=== PATIENT | male | born 1940 | race Caucasian/White ===

== ENCOUNTER 2021-05-15 23:10 | Inpatient (IN) | payer OTHER ==
[~2021-05-15] VITALS: Ht 177.8 cm; Wt 80.3 kg
--- NOTE | ~2021-05-15 | OP ---
[facility] [address] [place] [address] OPERATIVE REPORT Name: KHURRAM DICKEY Room: [address]R.#: [id number] Admission: 05/16/21 Attend Phys: Carroll Cheung Discharge: 05/20/21 Date of : 44 Report #: [id number] THIS REPORT FOR: cc: Ming Erickson Gregory DO Kesl,Umberto Rizo DO ~ DATE OF SURGERY: 05/17/2021 PREOPERATIVE DIAGNOSIS: Left displaced femoral neck fracture. POSTOPERATIVE DIAGNOSIS: Left displaced femoral neck fracture. PROCEDURE: Left sebas-hip arthroplasty. SURGEON: Umberto Bailey DO ANESTHESIA: General. ANTIBIOTICS: Ancef. IV FLUIDS: Please see anesthesia notes for details. ESTIMATED BLOOD LOSS: 150 mL. COMPLICATIONS: None. SPECIMENS: None. DRAINS: None. CONDITION OF THE PATIENT: Stable to PACU. IMPLANTS: Biomet Taperloc size 16 stem, standard offset standard length, +3 neck adapter with a 53 mm bipolar head. INDICATIONS FOR PROCEDURE: Displaced femoral neck fracture. I spoke with the patient and his , went over the plan of surgery with risks and complications. Consent given. DESCRIPTION OF PROCEDURE: I marked the left lower extremity in the presence of operative team members, everyone agreed to be correct. He was taken back to the operative suite, general anesthetic administered. He was transferred to the operative table, well-padded and secured including the Garcia. He was placed in the right lateral decubitus position, well padded and secured including the Garcia. Left lower extremity was sterilely prepped and draped in standard fashion. Timeout performed, indicating correct patient, procedure, site, [address] [address] OPERATIVE REPORT Name: KHURRAM DICKEY Room: [address] IN [facility].#: [id number] Admission: 05/16/21 Attend Phys: Carroll Cheung Discharge: 05/20/21 Date of : 44 Report #: [id number] antibiotics and the implants were present and sterile. All team members agreed. Anterolateral approach utilized, scalpeled through skin, full thickness flaps down to the IT band and fascia incised. Charnley retractor placed deep, anterior one-third of the gluteus medius and minimus were reflected off with a cuff of tissue for repair, leaving the attached at the tip of the trochanter. Capsule was another layer, T capsulotomy, labrum undisturbed. Reciprocating saw was used to clean up the femoral neck, one fingerbreadth above the lesser, femoral head removed. Size 53 trial placed, appropriate. Removed any debris remaining from within the acetabulum. We began prepping the femur. Box osteotome, canal finder, lateralizing, broaching. Size 16 good fit. Trialed the standard offset, neck, standard neck adapter with 53 shell. Leg lengths appeared slightly short. We dislocated, placed a , reduced the hip. Tension was created in regards to offset. Leg lengths were appropriate. Excellent stability in all planes. Dislocated the hip, removed trial components, irrigated thoroughly with normal saline. Final 16 Taperloc stem, standard offset, standard length on the back table. This was implanted, sat at the same location as the trial. Good fit, fill and rotational stability. No obvious evidence of any fracture, sitting at the same location, we therefore through the final 53 with +3 neck adapter engaged the Gabriel taper with mallet confirmed by no longer being able to remove, checked the acetabulum one last time. No debris. Reduced hip with all final components in place. Leg lengths were felt great, tension appropriate, stability in all planes. Thoroughly irrigated with normal saline. Vancomycin powder placed deep, closed the capsule with #1 Vicryl. Gluteus repaired with ____ sutures, #5 Ti-Cron and oversewn with #1 Vicryl. IT band and fascia were closed with #1 Vicryl and oversewn with #1 Stratafix. Subcutaneous with 2-0 Monocryl, skin with running 3-0 Stratafix. Debriefing performed confirming procedure, blood loss and all counts were correct and the final team members agreed. A sterile silver dressing applied. He was transferred off the operating table back to his bed supine. Leg lengths were appropriate. Abductor pillow placed. He was extubated and taken to PACU stable. POSTOPERATIVE COURSE AND EVALUATION. I spoke with his . Addressed questions to her satisfaction. She was recording our conversation on her phone. She was thankful for time and efforts. He was resting in PACU, stable vital signs. Pain control. Neurovascularly intact. PACU films showed stable prosthesis in good position and alignment. No obvious fracture or dislocation. Weightbear as tolerated. Anterolateral hip precautions, PT, OT. COVID protocol followed at all times. By: [id number] Bailey, /nt
[2021-05-15 23:15] VITALS: BP 174/75
[2021-05-15] MEDS ORDERED: ARICEPT23 MG PO (23:18)
[2021-05-15] MEDS ORDERED: LISINOPRIL20 MG PO (23:18)
[2021-05-15] MEDS ORDERED: MELATONIN3 M1 PO (23:19)
[2021-05-15] MEDS ORDERED: METFORMIN HCL500 M3 PO (23:19)
[2021-05-15] MEDS ORDERED: TOPROL XL25 MG PO (23:19)
[2021-05-15] MEDS ORDERED: NAMENDA 10 MG T10 MG PO (23:19)
[2021-05-15] MEDS ORDERED: PROPAFENONE 15150 MG PO (23:20)
[2021-05-15] MEDS ORDERED: OMEPRAZOLE40 MG PO (23:20)
[2021-05-15] MEDS ORDERED: ZOCOR 20 MG TAB20 M1 PO (23:21)
[2021-05-16 00:21] LABS: ABSOLUTE LYMPHOCYTES 0.9 thou/uL (0.8-5.3); ABSOLUTE NEUTROPHILS 8.2 thou/uL (1.6-8.1); BASOPHILS 0.3 %; EOSINOPHILS 0.2 %; HEMATOCRIT 37.1 % (42.0-52.0); HEMOGLOBIN 12.8 gm/dL (14.0-18.0); LYMPHOCYTES 8.9 %; MCH 33.3 pg (26.0-34.0); MCHC 34.4 g/dL (28.0-37.0); MCV 96.7 fL (80.0-100.0); MONOCYTES 9.5 %; MPV 7.5 fl. (7.2-11.1); NUCLEATED RBCS 0 /100WBC; PLATELET COUNT* 76 thou/uL (150-400); POLYS 81.1 %; RBC 3.83 mil/uL (4.50-6.00); RDW-CV 16.6 % (10.5-14.5); WBC 10.1 thou/uL (4.0-11.0)
[2021-05-16 00:24] LABS: CREATININE 1.7 mg/dL (0.6-1.3); POTASSIUM 4.2 mmol/L (3.5-5.1)
[2021-05-16 05:36] VITALS: BP 163/76
[2021-05-16 09:41] VITALS: BP 165/74
[2021-05-16 11:05] VITALS: BP 165/65
[2021-05-16] MEDS ORDERED: VITAMIN B-121000 MC2 PO (11:36)
[2021-05-16] MEDS ORDERED: OXYBUTYNIN 5 MG5 M2 PO (11:38)
--- NOTE | 2021-05-16 11:54 | NUR ---
PT TAKEN TO FLOOR ROOM 230 AT THIS TIME BY PAT NELSON.
--- NOTE | 2021-05-16 13:25 | EKG ---
[place] [address] ELECTROCARDIOGRAM REPORT Name: KHURRAM DICKEY Room: [address] ADM IN ..#: [id number] Admission: 05/16/21 Attend Phys: Magdy iMstry Discharge: Date of : 44 Date of Service: 05/16/21 0024 Report #: [id number] THIS REPORT FOR: //name// [facility] ED Test Date: 2021-05-16 Test Time: 00:24:45 Pat Name: KHURRAM DICKEY Department: Room: [facility] Gender: M [employer] Ware[employer] Worker: : 1940 Requested By: Arabella Tsang Order Number: [id number] MD: Shree Odonnell Measurements Intervals [place] Rate: 71 P: 43 NM: 177 QRS: 13 QRSD: 161 T: -8 QT: 422 QTc: 459 Interpretive Statements Sinus rhythm low voltage Right bundle branch block Baseline wander in lead(s) II,III,aVR,aVF No previous ECG available for comparison Electronically Signed On 05-16-2021 13:24:52 CDT by Shree Odonnell [email or web address] <ELECTRONICALLY SIGNED> By: Shree Odonnell MD, [facility] 05/16/21 1324 0024 0024 Shree Odonnell MD, [facility] /EPI
[2021-05-16 15:32] VITALS: BP 192/81
[2021-05-16 20:10] VITALS: BP 187/89
[2021-05-17] VITALS: BP 168/83
[2021-05-17 01:21] VITALS: BP 159/83; BP 168/83
[2021-05-17 04:52] VITALS: BP 159/83
[2021-05-17 05:07] LABS: PROTIME 10.8 Seconds (9.20-11.50)
--- NOTE | 2021-05-17 05:11 | NUR ---
PATIENT HAS REMAINED ALERT AND ORIENTED X 2-3, FORGETFUL. PLEASANT AND COOPERATIVE WITH CARES. REPOSITIONED MINAMALLY DUE TO PAIN LEFT HIP. MEDICATED X 2. O2 APPLIED AT 2L/MIN FOR SATS 86-91% ON ROOM AIR AFTER PAIN MEDICATION. MID TO UPPER 90'S ON RECHECKS. UPPER AND LOWER PARTIAL PLATES REMOVED THIS AM FOR SURGERY. THESE ARE IN DENTURE CUP LEFT AT BEDSIDE. SANTIAGO CATHETER IN PLACE WITH ADEQUATE URINE OUTPUT. VITAL SIGNS STABLE WITH HYPERTENSION. HYPERTENSION WAS REPORTED TO PHYSICIAN THIS PAST EVENING WITH NEW ORDERS. IMPROVEMENT OVERNIGHT. NPO FROM MIDNIGHT. PRE-OP ROUTINES IN PROGRESS. FALL PRECAUTIONS IN PLACE. CONTINUE TO MONITOR.
--- NOTE | 2021-05-17 06:14 | NUR ---
PATIENT TO PACU AT 0610 BY BED WITH ALL RAILS UP IN STABLE CONDITION.
[2021-05-17 08:00] VITALS: BP 157/94
[2021-05-17 12:36] LABS: ABSOLUTE LYMPHOCYTES 0.4 thou/uL (0.8-5.3); ABSOLUTE MONOCYTES 0.9 thou/uL (0.0-1.2); ABSOLUTE NEUTROPHILS 7.8 thou/uL (1.6-8.1); BASOPHILS 0.5 %; EOSINOPHILS 0.2 %; HEMOGLOBIN 10.6 gm/dL (14.0-18.0); LYMPHOCYTES 4.8 %; MCH 33.6 pg (26.0-34.0); MCHC 34.1 g/dL (28.0-37.0); MCV 98.6 fL (80.0-100.0); MONOCYTES 10.1 %; MPV 7.2 fl. (7.2-11.1); NUCLEATED RBCS 0 /100WBC; PLATELET COUNT* 59 thou/uL (150-400); POLYS 84.4 %; RBC 3.15 mil/uL (4.50-6.00); RDW-CV 15.9 % (10.5-14.5); WBC 9.2 thou/uL (4.0-11.0)
[2021-05-17 12:46] LABS: CALCIUM 7.9 mg/dL (8.5-10.1); CREATININE 1.4 mg/dL (0.6-1.3); POTASSIUM 4.2 mmol/L (3.5-5.1)
--- NOTE | 2021-05-17 15:12 | NUR ---
CM ASSESSMENT: CM SPOKE TO PT'S DTR TO COMPLETE CM ASSESSMENT. PT'S DTR INFORMS THAT THE PT JUST MOVED INTO [facility] A COUPLE OF DAYS AGO. PT USED A WHEELCHAIR FOR MOBILITY, AND DID NOT HAVE HOME OXYGEN PRIOR TO ADMIT. PT'S DTR INFORMS THAT THE [place] IF FOR THE PT TO RETURN TO [facility] AT D/C. [facility] I AGREEMENT WITH THIS PLAN, BUT WILL NEED TO OBTAIN INUSRANCE AUTH. PT/OT ORDERS WILL NEEDED TO OBTAIN INSURANCE AUTH. CM WILL REMAIN AVAILABLE TO ASSIST AND FOLLOW NEEDED.
[2021-05-17 16:00] VITALS: BP 120/69
--- NOTE | 2021-05-17 19:46 | NUR ---
PT BROUGHT BACK UP FROM SURGERY TODAY AT 1100PT HAS SANTIAGO CATH. AND WAS CALLING OUT FOR PAIN MEDICATIONS. PT RESTING ON HIS BED TURNED EVERY 2 HOURS OFF HIS BOTTOM. HIP DRESSING C/D/I. WEDGE IN BETWEEN HIS LEGS. WILL CONTINUE TO MONITOR PLAN OF CARE.
[2021-05-17 20:44] VITALS: BP 117/72
[2021-05-18 04:02] VITALS: BP 113/63
[2021-05-18 05:10] LABS: HEMATOCRIT 25.3 % (42.0-52.0); HEMOGLOBIN 8.7 gm/dL (14.0-18.0); MCH 34.1 pg (26.0-34.0); MCHC 34.5 g/dL (28.0-37.0); MCV 98.8 fL (80.0-100.0); MPV 7.1 fl. (7.2-11.1); RBC 2.56 mil/uL (4.50-6.00); RDW-CV 16.4 % (10.5-14.5); WBC 10.2 thou/uL (4.0-11.0)
[2021-05-18 05:24] LABS: CALCIUM 7.2 mg/dL (8.5-10.1); CREATININE 1.6 mg/dL (0.6-1.3); POTASSIUM 3.9 mmol/L (3.5-5.1)
--- NOTE | 2021-05-18 06:57 | NUR ---
PT IS ABLE TO COMMUNICATE HIS NEEDS TO STAFF WITH MINOR DIFFICULTY; HE IS CONFUSED AND FORGETFUL OFTEN. CURRENT PAIN MEDICATION REGIMEN HAS BEEN ADEQUATE FOR CONTROLLING HIS PAIN UP TO THIS TIME. SANTIAGO HAS BEEN PATENT UP TO THIS TIME. ABDUCTOR WEDGE KEPT IN PLACE THROUGHOUT THIS SHIFT. LT HIP DRESSING C/D/I UP TO THIS TIME; SURGERY TO EVAL AND CHANGE.
[2021-05-18 07:50] VITALS: BP 132/61
[2021-05-18 13:10] LABS: ABSOLUTE EOSINOPHILS 0.1 thou/uL (0.0-0.7); ABSOLUTE LYMPHOCYTES 0.8 thou/uL (0.8-5.3); ABSOLUTE MONOCYTES 2.4 thou/uL (0.0-1.2); ABSOLUTE NEUTROPHILS 8.8 thou/uL (1.6-8.1); BASOPHILS 0.3 %; EOSINOPHILS 0.5 %; HEMATOCRIT 24.1 % (42.0-52.0); HEMOGLOBIN 8.2 gm/dL (14.0-18.0); LYMPHOCYTES 6.8 %; MCH 33.3 pg (26.0-34.0); MCHC 34.1 g/dL (28.0-37.0); MCV 97.8 fL (80.0-100.0); NUCLEATED RBCS 0 /100WBC; PLATELET COUNT* 64 thou/uL (150-400); POLYS 72.4 %; RBC 2.47 mil/uL (4.50-6.00); RDW-CV 16.2 % (10.5-14.5); WBC 12.1 thou/uL (4.0-11.0)
[2021-05-18 16:00] VITALS: BP 139/64
--- NOTE | 2021-05-18 18:58 | NUR ---
PATIENT RESTING IN BED. PATIENT IS UP WITH MAX ASSIST OF 2 FOR TRANSFERS. PATIENT WORKED WITH THERAPIES THIS AM. PATIENT HAS COMPLAINTS OF PAIN, TREATED PARTIALLY WITH OXYCODONE. PATIENT HAS FAIR APPETITE. DRESSING TO LEFT HIP DRYA ND INTACT, BRUISING TO SITE. PATIENT DENIES ANY NEEDS AT THIS TIME. CALL LIGHT WITHIN REACH.
[2021-05-18 20:59] VITALS: BP 128/69
--- NOTE | 2021-05-19 06:02 | NUR ---
PT IS ABLE TO COMMUNICATE HIS NEEDS TO STAFF WITH MINOR DIFFICULTY; HE IS FORGETFUL AND CONFUSED. CURRENT PAIN MEDICATION REGIMEN HAS BEEN ADEQUATE FOR CONTROLLING HIS PAIN UP TO THIS TIME. PT REFUSED ABDUCTOR WEDGE, BUT, SCDs WERE ON ALL SHIFT. HIP SURGERY PRECAUTIONS MAINTAINED. PT EATING AND DRINKING. SANTIAGO PATENT UP TO THIS TIME.
[2021-05-19 08:30] VITALS: BP 98/60
[2021-05-19 12:00] VITALS: BP 108/53
[2021-05-19 16:00] VITALS: BP 136/66
--- NOTE | 2021-05-19 19:50 | NUR ---
I ASSUMED CARE OF THE PATIENT AT 0700. HE IS ALERT AND ORIENTED X1-2 AND IS UP WITH MAX ASSIST OF 2. BED IS IN THE LOW LOCKED POSITION AND CALL LIGHT IS IN REACH. HE IS REPOSITIONED EVERY 2 HOURS AND BLOOD GLUCOSE IS MONITORED. PAIN MEDS ARE USED TO PARTIALLY MANAGE PAIN. CALL LIGHT IS BROKEN AND BARRY IS BEING USED. FOOD TRAY NEEDS SETUP. WILL CONTINUE TO MONITOR. SANTIAGO IS A LITTLE LEAKY AROUND THE MEATUS. WILL VISIT TOMORROW.
[2021-05-19 20:00] VITALS: BP 110/71
[2021-05-20 05:09] VITALS: BP 122/63
[2021-05-20 08:01] VITALS: BP 132/66
[2021-05-20 09:06] VITALS: BP 132/66
[2021-05-20] MEDS ORDERED: PERCOCET PO (10:24)
[2021-05-20] MEDS ORDERED: SENNA8.6 MG PO (10:24)
--- NOTE | 2021-05-20 14:16 | NUR ---
PHYSICIAN INFORMS OF PLAN FOR THE PT TO D/C TODAY BACK TO [facility] TODAY. [facility] ARRANGED W/C [facility] FOR THE PT FOR [phone]. PT AND SPOUSE INFORMED AND IN AGREEMENT WITH THE PLAN. RN INFORMED OF WHERE TO CALL REPORT. CM WILL REMAIN AVAILABLE TO ASSIST AND FOLLOW NEEDED. [facility] PHONE: [phone] ([facility])
--- NOTE | 2021-05-20 15:32 | NUR ---
PT DC TO [facility] AT ABOUT 1525 WITH TRANSPORTERS. IVs OUT. SANTIAGO IN PLACE. REPORT GIVEN AT 1530 TO [facility]. PT STABLE UPON DISCHARGE.
== END 2021-05-20 15:36 | DRG 521 ==
LOC: M.ERS 23:10 → M.2W 05-16 01:41 → M.TBA-ER 05-16 01:41 → M.2W 05-16 12:01
PROVIDERS: Emergency Medicine; Internal Medicine; ADMIT Internal Medicine; ATTEND Internal Medicine
PROC: 0SRS01Z Replacement of Left Hip Joint, Femoral Surface with Metal Synthetic Substitute, Open Approach (ICD-10-PCS; principal; 2021-05-17)
DX: S72.142A Displaced intertrochanteric fracture of left femur, initial encounter for closed fracture (principal); N17.0 Acute kidney failure with tubular necrosis; R71.0 Precipitous drop in hematocrit; E11.9 Type 2 diabetes mellitus without complications; I10 Essential (primary) hypertension; E78.5 Hyperlipidemia, unspecified; K21.9 Gastro-esophageal reflux disease without esophagitis; F03.90 Unspecified dementia, unspecified severity, without behavioral disturbance, psychotic disturbance, mood disturbance, and anxiety; E78.00 Pure hypercholesterolemia, unspecified; W05.0XXA Fall from non-moving wheelchair, initial encounter; Z20.822 Contact with and (suspected) exposure to COVID-19; Y93.89 Activity, other specified; Y92.89 Other specified places as the place of occurrence of the external cause; Y99.8 Other external cause status; Z79.899 Other long term (current) drug therapy; Z87.891 Personal history of nicotine dependence

== ENCOUNTER 2021-05-28 14:05 | Inpatient (IN) | payer OTHER ==
[~2021-05-28] VITALS: Ht 172.7 cm; Wt 78.7 kg
[~2021-05-28 14:05] MED LIST: ARICEPT23 MG PO; LISINOPRIL20 MG PO; MELATONIN3 M1 PO; METFORMIN HCL500 M3 PO; NAMENDA 10 MG T10 MG PO; OMEPRAZOLE40 MG PO; OXYBUTYNIN 5 MG5 M2 PO; PERCOCET PO; PROPAFENONE 15150 MG PO; SENNA8.6 MG PO; TOPROL XL25 MG PO; VITAMIN B-121000 MC2 PO; ZOCOR 20 MG TAB20 M1 PO
[2021-05-28 14:14] VITALS: BP 124/44
[2021-05-28 14:21] LABS: URINE BILIRUBIN NEGATIVE (Negative); URINE BLOOD 3+ (Negative); URINE CLARITY CLOUDY; URINE COLOR YELLOW; URINE GLUCOSE-RANDOM NEGATIVE (Negative); URINE KETONES NEGATIVE (Negative); URINE PROTEIN 2+ (Negative)
[2021-05-28 14:22] LABS: URINE LEUKOCYTES-REFLEX 2+ (Negative); URINE NITRITE-REFLEX POSITIVE (Negative)
[2021-05-28 14:30] LABS: SQUAMOUS 4-10 Moderate /LPF (0-3); URINE WBC-REFLEX 6-15 Few /HPF (0-5)
[2021-05-28 14:31] LABS: CALCIUM OXALATE 4-10 Moderate /LPF (None Seen); CASTS None Seen /LPF (None Seen); TRIPLE PHOSPHATE CRYSTALS 4-10 Moderate /LPF (None Seen)
--- NOTE | 2021-05-28 14:37 | EKG ---
[place] [address] ELECTROCARDIOGRAM REPORT Name: KHURRAM DICKEY Room: [facility]#: [id number] Admission: Attend Phys: Discharge: Date of : 44 Date of Service: 05/28/21 1418 Report #: [id number] THIS REPORT FOR: //name// [facility] ED Test Date: 2021-05-28 Test Time: 14:18:48 Pat Name: KHURRAM DICKEY Department: Room: Gender: Corporate Security Officer: [facility] : 1940 Requested By: Lakhwinder Campos Order Number: [id number] MD: Shree Odonnell Measurements Intervals [place] Rate: 67 P: 15 MO: 166 QRS: -5 QRSD: 152 T: -3 QT: 471 QTc: 498 Interpretive Statements Sinus rhythm Right bundle branch block Compared to ECG 05/16/2021 00:24:45 No significant changes Electronically Signed On 05-28-2021 14:37:24 CDT by Shree Odonnell [email or web address] <ELECTRONICALLY SIGNED> By: Shree Odonnell MD, [facility] 05/28/21 1437 1418 1418 Shree Odonnell MD, [facility] /EPI
[2021-05-28 14:39] LABS: ABSOLUTE BASOPHILS 0.1 thou/uL (0.0-0.2); ABSOLUTE MONOCYTES 1.9 thou/uL (0.0-1.2); ABSOLUTE NEUTROPHILS 14.1 thou/uL (1.6-8.1); BASOPHILS 0.4 %; EOSINOPHILS 0.2 %; HEMATOCRIT 23.7 % (42.0-52.0); HEMOGLOBIN 7.8 gm/dL (14.0-18.0); LYMPHOCYTES 5.8 %; MCH 32.1 pg (26.0-34.0); MCHC 32.9 g/dL (28.0-37.0); MCV 97.7 fL (80.0-100.0); MONOCYTES 11.1 %; MPV 6.6 fl. (7.2-11.1); NUCLEATED RBCS 1 /100WBC; PLATELET COUNT* 212 thou/uL (150-400); POLYS 82.5 %; RBC 2.42 mil/uL (4.50-6.00); RDW-CV 17.1 % (10.5-14.5); WBC 17.1 thou/uL (4.0-11.0)
[2021-05-28 14:45] LABS: CALCIUM 8.6 mg/dL (8.5-10.1); CREATININE 1.6 mg/dL (0.6-1.3); POTASSIUM 3.9 mmol/L (3.5-5.1)
[2021-05-28 14:59] LABS: ALBUMIN 2.6 g/dL (3.4-5.0); TOTAL BILIRUBIN 0.6 mg/dL (<0.1-1.0); TOTAL PROTEIN 7.6 g/dL (6.4-8.2)
[2021-05-28 15:41] VITALS: BP 104/50
[2021-05-28 19:45] VITALS: BP 128/64
[2021-05-29] VITALS (8 sets, daily range): BP systolic 115–156; BP diastolic 56–91
[2021-05-29 04:34] LABS: MCH 32.4 pg (26.0-34.0); MCHC 33.5 g/dL (28.0-37.0); MPV 6.5 fl. (7.2-11.1); RBC 1.94 mil/uL (4.50-6.00); RDW-CV 16.9 % (10.5-14.5); WBC 7.3 thou/uL (4.0-11.0)
[2021-05-29 04:46] LABS: HEMATOCRIT 18.8 % (42.0-52.0); HEMOGLOBIN 6.3 gm/dL (14.0-18.0)
[2021-05-29 05:03] LABS: CALCIUM 7.7 mg/dL (8.5-10.1); CREATININE 1.3 mg/dL (0.6-1.3); MAGNESIUM 1.7 mg/dL (1.8-2.4); POTASSIUM 3.6 mmol/L (3.5-5.1); TOTAL BILIRUBIN 0.5 mg/dL (<0.1-1.0); TOTAL PROTEIN 5.9 g/dL (6.4-8.2)
[2021-05-29 14:37] LABS: HEMATOCRIT 25.7 % (42.0-52.0)
[2021-05-29 14:38] LABS: HEMOGLOBIN 8.8 gm/dL (14.0-18.0)
[2021-05-30 01:00] VITALS: BP 140/61
[2021-05-30 04:15] LABS: HEMATOCRIT 23.4 % (42.0-52.0); HEMOGLOBIN 7.9 gm/dL (14.0-18.0); MCH 31.5 pg (26.0-34.0); MCV 92.8 fL (80.0-100.0); MPV 6.4 fl. (7.2-11.1); RBC 2.52 mil/uL (4.50-6.00); RDW-CV 19.2 % (10.5-14.5); WBC 7.4 thou/uL (4.0-11.0)
[2021-05-30 04:28] LABS: ALBUMIN 2.3 g/dL (3.4-5.0); CALCIUM 8.1 mg/dL (8.5-10.1); CREATININE 1.3 mg/dL (0.6-1.3); MAGNESIUM 1.6 mg/dL (1.8-2.4); POTASSIUM 3.8 mmol/L (3.5-5.1); TOTAL BILIRUBIN 0.6 mg/dL (<0.1-1.0); TOTAL PROTEIN 6.4 g/dL (6.4-8.2)
[2021-05-30 05:27] VITALS: BP 151/74
[2021-05-30 08:00] VITALS: BP 156/70
[2021-05-30 11:43] VITALS: BP 137/66
[2021-05-30 17:34] VITALS: BP 141/75
[2021-05-30 20:15] VITALS: BP 132/58
[2021-05-31 01:12] VITALS: BP 145/72
[2021-05-31 04:24] LABS: HEMATOCRIT 23.5 % (42.0-52.0); MCH 31.7 pg (26.0-34.0); MCHC 34.1 g/dL (28.0-37.0); MCV 92.9 fL (80.0-100.0); MPV 6.5 fl. (7.2-11.1); RBC 2.53 mil/uL (4.50-6.00); RDW-CV 18.6 % (10.5-14.5); WBC 6.4 thou/uL (4.0-11.0)
[2021-05-31 04:43] LABS: ALBUMIN 2.2 g/dL (3.4-5.0); CALCIUM 8.4 mg/dL (8.5-10.1); CREATININE 1.4 mg/dL (0.6-1.3); MAGNESIUM 1.8 mg/dL (1.8-2.4); POTASSIUM 3.8 mmol/L (3.5-5.1); TOTAL BILIRUBIN 0.4 mg/dL (<0.1-1.0); TOTAL PROTEIN 6.2 g/dL (6.4-8.2)
[2021-05-31 05:24] VITALS: BP 152/62
[2021-05-31 12:00] VITALS: BP 124/62
[2021-05-31 16:00] VITALS: BP 129/65
[2021-05-31 18:29] LABS: URINE BILIRUBIN NEGATIVE (Negative); URINE BLOOD TRACE (Negative); URINE CLARITY CLEAR; URINE COLOR YELLOW; URINE GLUCOSE-RANDOM NEGATIVE (Negative); URINE KETONES NEGATIVE (Negative); URINE LEUKOCYTES 1+ (Negative); URINE NITRITE NEGATIVE (Negative); URINE PROTEIN NEGATIVE (Negative)
[2021-05-31 18:37] LABS: BACTERIA 1-9 Few /HPF (None Seen); SQUAMOUS 0-3 Few /LPF (0-3); URINE RBC 0-2 Rare /HPF (0-2); URINE WBC 6-15 Few /HPF (0-5)
[2021-05-31 18:38] LABS: CASTS None Seen /LPF (None Seen); CRYSTALS None Seen /LPF (None Seen)
[2021-05-31 20:00] VITALS: BP 132/63
[2021-06-01 00:50] VITALS: BP 141/61
[2021-06-01 06:21] VITALS: BP 142/72
[2021-06-01 07:47] VITALS: BP 117/54
[2021-06-01 07:57] VITALS: BP 163/83
[2021-06-01 12:00] VITALS: BP 145/77
[2021-06-01] MEDS ORDERED: BENAZEPRIL HCL20 MG PO (13:41)
[2021-06-01] MEDS ORDERED: METOPROLOL SUCC25 M1 PO (13:41)
[2021-06-01] MEDS ORDERED: FLOMAX0.4 MG PO (13:41)
[2021-06-01] MEDS ORDERED: CIPRO250 M2 PO (13:43)
[2021-06-01 13:50] LABS: ABSOLUTE MONOCYTES 0.9 thou/uL (0.0-1.2); ABSOLUTE NEUTROPHILS 4.5 thou/uL (1.6-8.1); BASOPHILS 0.7 %; EOSINOPHILS 0.6 %; HEMATOCRIT 26.8 % (42.0-52.0); LYMPHOCYTES 14.9 %; MCH 31.6 pg (26.0-34.0); MCHC 33.6 g/dL (28.0-37.0); MCV 94.2 fL (80.0-100.0); MONOCYTES 13.8 %; MPV 6.1 fl. (7.2-11.1); NUCLEATED RBCS 0 /100WBC; PLATELET COUNT* 139 thou/uL (150-400); RBC 2.85 mil/uL (4.50-6.00); RDW-CV 18.7 % (10.5-14.5); WBC 6.4 thou/uL (4.0-11.0)
[2021-06-01 13:56] LABS: CALCIUM 8.4 mg/dL (8.5-10.1); CREATININE 1.2 mg/dL (0.6-1.3); MAGNESIUM 1.8 mg/dL (1.8-2.4); POTASSIUM 4.1 mmol/L (3.5-5.1)
[2021-06-01 16:00] VITALS: BP 133/77
== END 2021-06-01 17:45 | DRG 871 ==
LOC: M.ERS 14:05 → M.TBA-ER 14:34 → M.2W 14:34
PROVIDERS: Family Medicine; Internal Medicine; ADMIT Internal Medicine; ATTEND Internal Medicine
PROC: 30233N1 Transfusion of Nonautologous Red Blood Cells into Peripheral Vein, Percutaneous Approach (ICD-10-PCS; principal; 2021-05-29)
DX: A41.9 Sepsis, unspecified organism (principal); N17.0 Acute kidney failure with tubular necrosis; N39.0 Urinary tract infection, site not specified; I10 Essential (primary) hypertension; M81.0 Age-related osteoporosis without current pathological fracture; E66.01 Morbid (severe) obesity due to excess calories; R65.20 Severe sepsis without septic shock; E11.65 Type 2 diabetes mellitus with hyperglycemia; I48.91 Unspecified atrial fibrillation; D64.9 Anemia, unspecified; G20 Parkinson's disease; Z20.822 Contact with and (suspected) exposure to COVID-19; B96.4 Proteus (mirabilis) (morganii) as the cause of diseases classified elsewhere; B96.5 Pseudomonas (aeruginosa) (mallei) (pseudomallei) as the cause of diseases classified elsewhere; F02.80 Dementia in other diseases classified elsewhere, unspecified severity, without behavioral disturbance, psychotic disturbance, mood disturbance, and anxiety; Z68.26 Body mass index [BMI] 26.0-26.9, adult; Z87.891 Personal history of nicotine dependence; Z82.5 Family history of asthma and other chronic lower respiratory diseases; Z79.899 Other long term (current) drug therapy; Z23 Encounter for immunization